=== PATIENT | female | born 1955 | race African-American/Black ===

== ENCOUNTER 2017-01-23 12:43 | Emergency (ER) | payer BC ==
[~2017-01-23] VITALS: Ht 167.6 cm; Wt 62.0 kg
[~2017-01-23 12:43] MED LIST: AMLO10 PO; ASPI-110 PO; BRIL90TA PO; CARV6.25 PO; LIPI40TA PO; METF500T PO
--- NOTE | 2017-01-23 12:52 | PD ---
HPI Chief Complaint: DIZZY Time Seen by Provider: 12:49 Travel History International Travel<30 days: No Contact w/Intl Traveler<30days: No History of Present Illness HPI WORKS AT [employer], WAS IN A HOT ROOM WORKING WHEN SHE FELT DIZZY AND LIGHTHEADED NO CP/HAYES, HAS A H/O DM/HTN AND CARDIAC STENTS.... PATIENT DENIES HAVING ANY FEVER/COUGH/HAYES/CP/PALPITATIONS AT THE TIME OF DIZZINESS, IMPROVED ONCE SHE LAID DOWN PFSH Past Medical History Arthritis: Yes Autoimmune Disease: No Blood Disorders: No Heart Rhythm Problems: Yes Cancer: No Cardiac Catheterization: Yes Cardiovascular Problems: Yes Chemotherapy: No Chest Pain: Yes Congestive Heart Failure: No Cerebrovascular Accident: No Coronary Artery Disease: Yes Diabetes: Yes Diminished Hearing: No Endocrine: No Gastrointestinal Disorders: No Genitourinary: No Headaches: Yes Heparin Induced Thrombocytopen: No Hypertension: Yes Immune Disorder: No Implanted Vascular Access Dvce: No Musculoskeletal: Yes Neurologic: No Psychiatric: No Reproductive: No Respiratory: No Immunizations Current: No Migraines: No Myocardial Infarction: Yes Radiation Therapy: No Seizures: No Sickle Cell Disease: No Thyroid Disease: No Menopausal: Yes Past Surgical History Abdominal Surgery: No AICD: No Arteriovenous Shunt: No Cardiac Surgery: Yes (HEART CATH WITH STENT) Coronary Artery Bypass Graft: No Coronary Stent: Yes (X 1) Ear Surgery: No Endocrine Surgery: No Eye Surgery: No Genitourinary Surgery: No Gynecologic Surgery: No Insulin Pump: No Joint Replacement: No Neurologic Surgery: No Oral Surgery: No Pacemaker: No Thoracic Surgery: No Other Surgery: No Social History Alcohol Use: No Tobacco Use: Yes (1/2 PPD) Substance Use: Yes (MARIJUANA) Allergies-Medications (Allergen,Severity, Reaction): Coded Allergies: Penicillin (Verified Allergy, Severe, HIVES, 01/23/17) Reported Meds & Prescriptions Reported Meds & Active Scripts Active Brilinta (Ticagrelor) 90 Mg Tab 90 Mg PO BID 30 Days Norvasc (Amlodipine Besylate) 10 Mg Tab 10 Mg PO DAILY Metformin (Metformin HCl) 500 Mg Tab 500 Mg PO DAILY With a meal Coreg (Carvedilol) 6.25 Mg Tab 6.25 Mg PO BID Lipitor (Atorvastatin Calcium) 40 Mg Tab 40 Mg PO DAILY Reported Aspirin 81 (Aspirin) 81 Mg Tabdr 81 Mg PO DAILY Review of Systems Except as stated in HPI: all other systems reviewed are Neg Neurologic: Positive: Dizziness Physical Exam Narrative GENERAL: SKIN: Warm and dry. HEAD: Atraumatic. Normocephalic. EYES: Pupils equal and round. No scleral icterus. No injection or drainage. ENT: No nasal bleeding or discharge. Mucous membranes pink and moist. NECK: Trachea midline. No JVD. CARDIOVASCULAR: Regular rate and rhythm. RESPIRATORY: No accessory muscle use. Clear to auscultation. Breath sounds equal bilaterally. GASTROINTESTINAL: Abdomen soft, non-tender, nondistended. Hepatic and splenic margins not palpable. MUSCULOSKELETAL: Extremities without clubbing, cyanosis, or edema. No obvious deformities. NEUROLOGICAL: Awake and alert. No obvious cranial nerve deficits. Motor grossly within normal limits. Five out of 5 muscle strength in the arms and legs. Normal speech. PSYCHIATRIC: Appropriate mood and affect; insight and judgment normal. Data Data Last Documented VS Orders Electrocardiogram (01/23/17 12:56) Complete Blood Count With Diff (01/23/17 12:56) Comprehensive Metabolic Panel (01/23/17 12:56) Troponin I (01/23/17 12:56) Urinalysis - C+S If Indicated (01/23/17 12:56) Ct Brain W/O Iv Contrast(Rout) (01/23/17 12:56) Chest, Single Ap (01/23/17 12:56) Ecg Monitoring (01/23/17 12:56) Iv Access Insert/Monitor (01/23/17 12:56) Oximetry (01/23/17 12:56) Sodium Chloride 0.9% Flush (Ns Flush) (01/23/17 13:00) Sodium Chlor 0.9% 1000 Ml Inj (Ns 1000 M (01/23/17 14:45) Labs MDM Medical Decision Making Medical Screen Exam Complete: Yes Emergency Medical Condition: Yes Interpretation(s) NSR 79, PVC (MONOFOCAL)INVERTED T WAVES ON V5/V6 Differential Diagnosis DEHYDRATION V ANEMIA V HEAT RELATED ILLNESS V IA V ICH Narrative Course AFTER THOROUGH EVALUATION PATIENT IS NOW FEELING BETTER, RESOLVED DIZZINESS AFTER IVF. CT HEAD NEG FOR ICH, NO ELECTROLYTE ABNL NOR ANY ANEMIA NOR ANY EVIDENCE OF A MAJOR IA Diagnosis Primary Impression: HEAT RELATED ILLNESS Additional Impression: DEHYDRATION Patient Instructions: Dehydration (ED), General Instructions, Return to Work Instructions (ED) Disposition: 01 DISCHARGE HOME Condition: Stable Lightburn,Felipe Mcintosh MD Jan 23, 2017 12:51 Concent Red Cell Distribution Width 18.5 % Platelet Count 312 TH/MM3 Mean Platelet Volume 7.9 FL Neutrophils (%) (Auto) 51.2 % Lymphocytes (%) (Auto) 33.4 % Monocytes (%) (Auto) 9.1 % Eosinophils (%) (Auto) 5.5 % Basophils (%) (Auto) 0.8 % Neutrophils # (Auto) 2.9 TH/MM3 Lymphocytes # (Auto) 1.9 TH/MM3 Monocytes # (Auto) 0.5 TH/MM3 Eosinophils # (Auto) 0.3 TH/MM3 Basophils # (Auto) 0.0 TH/MM3 CBC Comment DIFF FINAL Differential Comment Urine Color LIGHT-YELLOW Urine Turbidity CLEAR Urine pH 6.0 Urine Specific [place] 1.011 Urine Protein 100 mg/dL Urine Glucose (UA) NEG mg/dL Urine Ketones NEG mg/dL Urine Occult Blood TRACE Urine Nitrite NEG Urine Bilirubin NEG Urine Urobilinogen LESS THAN 2.0 MG/DL Urine Leukocyte Esterase MOD Urine RBC LESS THAN 1 /hpf Urine WBC 2 /hpf Urine Squamous Epithelial 1 /hpf Cells Urine Transitional Epithelial <1 /hpf Cells Urine Renal Epithelial Cells /hpf Urine Bacteria /hpf Microscopic Urinalysis Comment CATH-CULT NOT IND Sodium Level 141 MEQ/L Potassium Level 3.6 MEQ/L Chloride Level 107 MEQ/L Carbon Dioxide Level 28.1 MEQ/L Anion Gap 6 MEQ/L Blood Urea Nitrogen 22 MG/DL Creatinine 1.34 MG/DL Estimat Glomerular Filtration 49 ML/MIN Rate Random Glucose 110 MG/DL Calcium Level 8.9 MG/DL Total Bilirubin 0.4 MG/DL Aspartate Amino Transf 17 U/L (AST/SGOT) Alanine Aminotransferase 22 U/L (ALT/SGPT) Alkaline Phosphatase 110 U/L Troponin I 0.02 NG/ML Total Protein 7.2 GM/DL Albumin 3.6 GM/DL [facility] Medical Decision Making Medical Screen Exam Complete: Yes Emergency Medical Condition: Yes Interpretation(s) NSR 79, PVC (MONOFOCAL)INVERTED T WAVES ON V5/V6 Differential Diagnosis DEHYDRATION V ANEMIA V HEAT RELATED ILLNESS V IA V ICH Narrative Course AFTER THOROUGH EVALUATION PATIENT IS NOW FEELING BETTER, RESOLVED DIZZINESS AFTER IVF. CT HEAD NEG FOR ICH, NO ELECTROLYTE ABNL NOR ANY ANEMIA NOR ANY EVIDENCE OF A MAJOR IA Diagnosis Primary Impression: HEAT RELATED ILLNESS Additional Impression: DEHYDRATION Patient Instructions: Dehydration (ED), General Instructions, Return to Work Instructions (ED) Disposition: 01 DISCHARGE HOME Condition: Stable Felipe Keane MD Jan 23, 2017 12:51 Felipe Keane MD Jan 23, 2017 12:51
[2017-01-23 12:56] VITALS: BP 162/91; PULSE 84; RESP 20; TEMP 97.5; O2SAT 97
[2017-01-23] MEDS ORDERED: SODIUM CHLORIDE 0.9% FLUSH 10 ML FLUSH IVF PRN (13:00)
[2017-01-23 13:02] VITALS: O2SAT 99
--- NOTE | 2017-01-23 13:24 | RADRPT ---
EXAM DATE/TIME: 01/23/2017 13:08 [facility] COMPARISON: CHEST SINGLE AP, June 04, 2016, 9:42. INDICATIONS : Syncopal episode. MEDICAL HISTORY : Myocardial infarction. Hypertension Diabetes mellitus type II. Coronary artery disease. SURGICAL HISTORY : Cardiac stent. ENCOUNTER: Initial ACUITY: 1 day PAIN SCORE: 0/10 LOCATION: Bilateral chest FINDINGS: A single view of the chest demonstrates the lungs to be symmetrically aerated without evidence of mas s, infiltrate or effusion. The cardiomediastinal contours are unremarkable. Osseous structures are intact. CONCLUSION: No acute disease. No significant change has occurred. Tito De Leon MD on January 23, 2017 at 13:22 Board Certified Radiologist. This report was verified electronically.
[2017-01-23 14:05] LABS: AUTOMATED NEUTROPHIL # 2.9 TH/MM3 (1.8-7.7); BASOPHIL % 0.8 % (0.0-2.0); EOSINOPHIL # 0.3 TH/MM3 (0-0.4); EOSINOPHIL % 5.5 % (0.0-4.0); HEMATOCRIT 37.5 % (35.0-46.0); HEMO FLAGS DIFF FINAL; LYMPH % 33.4 % (9.0-44.0); LYMPHOCYTE # 1.9 TH/MM3 (1.0-4.8); MEAN CELL VOLUME 80.9 FL (80.0-100.0); MEAN CORPUSCULAR HEMOGLOBIN 26.4 PG (27.0-34.0); MEAN CORPUSCULAR HGB CONC 32.6 % (32.0-36.0); MONO % 9.1 % (0.0-8.0); NEUT % 51.2 % (16.0-70.0); PLATELET COUNT 312 TH/MM3 (150-450); RED BLOOD COUNT 4.64 MIL/MM3 (4.00-5.30); RED CELL DISTRIBUTION WIDTH 18.5 % (11.6-17.2); WHITE BLOOD COUNT 5.6 TH/MM3 (4.0-11.0)
[2017-01-23 14:08] LABS: BLOOD, URINE TRACE (NEG); GLUCOSE,URINE NEG (NEG); KETONE, URINE NEG (NEG); NITRITE,URINE NEG (NEG); SQUAMOUS EPITHELIAL CELL URINE 1 /hpf (0-5); TRANSITIONAL EPI CELLS, URINE <1 /hpf; URINE COLOR LIGHT-YELLOW (YELLW/STRAW)
[2017-01-23 14:13] LABS: COMMENT (UR) CATH-CULT NOT IND; CULTURE IF INDICATED CATH CULTURE NOT IND
[2017-01-23 14:20] LABS: ALT (GPT) 22 U/L (10-53); ANION GAP 6 MEQ/L (5-15); AST (GOT) 17 U/L (15-37); BICARBONATE 28.1 MEQ/L (21.0-32.0); BLOOD UREA NITROGEN 22 MG/DL (7-18); CHLORIDE 107 MEQ/L (98-107); GLOMERULAR FILTRATION RATE 49 ML/MIN (>89); POTASSIUM 3.6 MEQ/L (3.5-5.1); SODIUM (NA) 141 MEQ/L (136-145)
[2017-01-23 14:24] LABS: ALKALINE PHOSPHATASE 110 U/L (45-117); TOTAL BILIRUBIN ADULT 0.4 MG/DL (0.2-1.0)
--- NOTE | 2017-01-23 14:38 | RADRPT ---
EXAM DATE/TIME: 01/23/2017 13:50 [facility] COMPARISON: CT BRAIN W/O CONTRAST, January 29, 2015, 15:10. INDICATIONS : Headache, dizziness, nausea. RADIATION DOSE: 40.87 CTDIvol (mGy) MEDICAL HISTORY : Cardiovascular disease. Hypertension. Diabetes SURGICAL HISTORY : None. ENCOUNTER: Initial ACUITY: 1 day PAIN SCALE: 0/10 LOCATION: cranial TECHNIQUE: Multiple contiguous axial images were obtained of the head. Using automated exposure control and adj ustment of the mA and/or kV according to patient size, radiation dose was kept as low as reasonably a chievable to obtain optimal diagnostic quality images. DICOM format image data is available electro nically for review and comparison. FINDINGS: CEREBRUM: The ventricles are normal for age. No evidence of midline shift, mass lesion, hemorrhage or acute in farction. No extra-axial fluid collections are seen. POSTERIOR FOSSA: The cerebellum and brainstem are intact. The 4th ventricle is midline. The cerebellopontine angle i s unremarkable. EXTRACRANIAL: The visualized portion of the orbits is intact. SKULL: The calvaria is intact. No evidence of skull fracture. CONCLUSION: Normal examination. Nelson Smith MD on January 23, 2017 at 14:35 Board Certified Radiologist. This report was verified electronically.
[2017-01-23] MEDS ORDERED: SODIUM CHLOR 0.9% 1000 ML INJ 1,000 ML IV ONE (14:45)
--- NOTE | 2017-01-25 08:41 | EKG ---
Date Performed: 01/23/2017 Time Performed: 13:10:01 PTAGE: 61 years EKG: Sinus rhythm WITH OCCASIONAL VENTRICULAR PREMATURE COMPLEXES INFERIOR MYOCARDIAL INFARCTION ABNORMAL ECG PREVIOUS TRACING : 06/05/2016 05.17 DOCTOR: Mireille Lacy Interpretating Date/Time 01/25/2017 08:39:58
== END 2017-01-23 16:56 | disposition home or self-care (01) ==
LOC: NEPC 12:43
DX: T67.8XXA Other effects of heat and light, initial encounter (principal); E86.0 Dehydration; R94.31 Abnormal electrocardiogram [ECG] [EKG]; E11.9 Type 2 diabetes mellitus without complications; I10 Essential (primary) hypertension; I25.2 Old myocardial infarction; F17.200 Nicotine dependence, unspecified, uncomplicated; X30.XXXA Exposure to excessive natural heat, initial encounter; Y92.59 Other trade areas as the place of occurrence of the external cause; Y99.0 Civilian activity done for income or pay; Z79.84 Long term (current) use of oral hypoglycemic drugs; Z86.79 Personal history of other diseases of the circulatory system; Z87.39 Personal history of other diseases of the musculoskeletal system and connective tissue
CPT/HCPCS: 70450; 71010; 80053; 81001; 84484; 85025; 93005; 96360; 99285; J7030

== ENCOUNTER 2017-04-18 13:18 | Emergency (ER) | payer BC ==
[~2017-04-18] VITALS: Ht 167.6 cm; Wt 62.0 kg
[2017-04-18 13:31] VITALS: BP 137/100; PULSE 79; RESP 19; O2SAT 100
[2017-04-18 13:38] VITALS: BP 137/100; PULSE 79; RESP 19; TEMP 98.1; O2SAT 100
[2017-04-18] MEDS ORDERED: ONDANSETRON HCL 4 MG/2 ML VIAL IV PUSH ONE (13:45)
[2017-04-18] MEDS ORDERED: NITROGLYCERIN 2% OINT 1 GM PACKET TOP ONE (13:45)
[2017-04-18] MEDS ORDERED: MORPHINE SULFATE 4 MG/ML INJ IV PUSH ONE (13:45)
[2017-04-18] MEDS ORDERED: SODIUM CHLORIDE 0.9% FLUSH 10 ML FLUSH IVF PRN (13:45)
[2017-04-18] MEDS ORDERED: ASPIRIN 81 MG CHEW TAB PO ONE (13:45)
[2017-04-18] MEDS ORDERED: PLAV75TA29 PO (13:50)
--- NOTE | 2017-04-18 13:56 | PD ---
HPI . Chest pain Chief Complaint: Chest Pain Time Seen by Provider: 13:34 Travel History International Travel<30 days: No Contact w/Intl Traveler<30days: No Traveled to known affect area: No History of Present Illness HPI This patient presents with right-sided chest pain which started 3 days ago. She reports a constant pain that is pressure-like and which she currently rates 7/10. She states that it has been as severe as 10/10. She denies any associated diaphoresis or shortness of breath. She reports one episode of emesis this morning. No modifying factors. PFSH Past Medical History Hx Anticoagulant Therapy: Yes Arthritis: Yes Autoimmune Disease: No Blood Disorders: No Heart Rhythm Problems: Yes Cancer: No Cardiac Catheterization: Yes Cardiovascular Problems: Yes Chemotherapy: No Chest Pain: Yes Congestive Heart Failure: No Cerebrovascular Accident: No Coronary Artery Disease: Yes Diabetes: Yes Patient Takes Glucophage: Yes Diminished Hearing: No Endocrine: No Gastrointestinal Disorders: No Genitourinary: No Headaches: Yes (OCCASIONAL) Heparin Induced Thrombocytopen: No Hypertension: Yes Immune Disorder: No Implanted Vascular Access Dvce: No Musculoskeletal: Yes Neurologic: No Psychiatric: No Reproductive: No Respiratory: No Immunizations Current: No Migraines: No Myocardial Infarction: Yes Radiation Therapy: No Seizures: No Sickle Cell Disease: No Thyroid Disease: No ?: Not Menopausal: Yes Past Surgical History Abdominal Surgery: No AICD: No Arteriovenous Shunt: No Cardiac Surgery: Yes (HEART CATH WITH STENT) Coronary Artery Bypass Graft: No Coronary Stent: Yes (X 3) Ear Surgery: No Endocrine Surgery: No Eye Surgery: No Genitourinary Surgery: No Gynecologic Surgery: No Insulin Pump: No Joint Replacement: No Neurologic Surgery: No Oral Surgery: No Pacemaker: No Thoracic Surgery: No Other Surgery: No Family History Family Myocardial Infarction: Yes Social History Alcohol Use: No Tobacco Use: Yes (1/2 PPD) Substance Use: Yes (MARIJUANA) Allergies-Medications (Allergen,Severity, Reaction): Coded Allergies: penicillin G (Verified Allergy, Severe, HIVES, 04/18/17) Reported Meds & Prescriptions Reported Meds & Active Scripts Active Norvasc (Amlodipine Besylate) 10 Mg Tab 10 Mg PO DAILY Metformin (Metformin HCl) 500 Mg Tab 500 Mg PO DAILY With a meal Coreg (Carvedilol) 6.25 Mg Tab 6.25 Mg PO BID Lipitor (Atorvastatin Calcium) 40 Mg Tab 40 Mg PO DAILY Reported Plavix (Clopidogrel Bisulfate) 75 Mg Tab 75 Mg PO DAILY Aspirin 81 (Aspirin) 81 Mg Tabdr 81 Mg PO DAILY Review of Systems Except as stated in HPI: all other systems reviewed are Neg HENT: No: Headaches Cardiovascular: Positive: Chest Pain or Discomfort Respiratory: No: Shortness of Breath Gastrointestinal: Positive: Nausea, Vomiting Physical Exam Narrative GENERAL: Awake and alert and in no acute distress. SKIN: warm/dry. No rash. HEAD: Normocephalic. Atraumatic. EYES: Pupils equal and round. No scleral icterus. No injection or drainage. ENT: No nasal bleeding or discharge. Mucous membranes pink and moist. NECK: Trachea midline. Full range of motion without pain.. CARDIOVASCULAR: Regular rate and rhythm. Heart sounds normal. RESPIRATORY: No accessory muscle use. Clear to auscultation. Breath sounds equal bilaterally. Reproducible right sided chest wall tenderness. GASTROINTESTINAL: Abdomen soft. Nontender. Bowel sounds present. Nondistended. MUSCULOSKELETAL: No obvious deformities. NEUROLOGICAL: Awake and alert. No obvious cranial nerve deficits. Motor grossly within normal limits. Normal speech. PSYCHIATRIC: Appropriate mood and affect; insight and judgment normal. Data Data Last Documented VS Vital Signs Date Time Temp Pulse Resp B/P (MAP) Pulse Ox O2 Delivery O2 Flow Rate FiO2 04/18/17 13:38 98.1 79 19 137/100 (112) 100 Room Air Orders Orders Electrocardiogram (04/18/17 13:34) Basic Metabolic Panel (Bmp) (04/18/17 13:34) Ckmb (Isoenzyme) Profile (04/18/17 13:34) Complete Blood Count With Diff (04/18/17 13:34) D-Dimer (04/18/17 13:34) Magnesium (Mg) (04/18/17 13:34) Prothrombin Time / Inr (Pt) (04/18/17 13:34) Act Partial Throm Time (Ptt) (04/18/17 13:34) Troponin I (04/18/17 13:34) Chest, Single Ap (04/18/17 13:34) Ecg Monitoring (04/18/17 13:34) Iv Access Insert/Monitor (04/18/17 13:34) Oximetry (04/18/17 13:34) Aspirin Chew (Aspirin Chew) (04/18/17 13:45) Morphine Inj (Morphine Inj) (04/18/17 13:45) Nitroglycerin 2% Oint (Nitroglycerin 2% (04/18/17 13:45) Sodium Chloride 0.9% Flush (Ns Flush) (04/18/17 13:45) Ondansetron Inj (Zofran Inj) (04/18/17 13:45) CKMB (04/18/17 13:45) CKMB% (04/18/17 13:45) Labs Laboratory Tests Test 04/18/17 13:45 White Blood Count 5.2 TH/MM3 Red Blood Count 5.27 MIL/MM3 Hemoglobin 14.1 GM/DL Hematocrit 42.9 % Mean Corpuscular Volume 81.3 FL Mean Corpuscular Hemoglobin 26.7 PG Mean Corpuscular Hemoglobin Concent 32.9 % Red Cell Distribution Width 18.1 % Platelet Count 302 TH/MM3 Mean Platelet Volume 7.3 FL Neutrophils (%) (Auto) 45.6 % Lymphocytes (%) (Auto) 38.4 % Monocytes (%) (Auto) 8.2 % Eosinophils (%) (Auto) 6.3 % Basophils (%) (Auto) 1.5 % Neutrophils # (Auto) 2.4 TH/MM3 Lymphocytes # (Auto) 2.0 TH/MM3 Monocytes # (Auto) 0.4 TH/MM3 Eosinophils # (Auto) 0.3 TH/MM3 Basophils # (Auto) 0.1 TH/MM3 CBC Comment DIFF FINAL Differential Comment Prothrombin Time 10.4 SEC Prothromb Time International Ratio 0.9 RATIO Activated Partial Thromboplast Time 30.3 SEC D-Dimer Quantitative (PE/DVT) 0.51 MG/L FEU Blood Urea Nitrogen 16 MG/DL Creatinine 1.12 MG/DL Random Glucose 107 MG/DL Calcium Level 9.4 MG/DL Magnesium Level 1.9 MG/DL Sodium Level 141 MEQ/L Potassium Level 3.9 MEQ/L Chloride Level 108 MEQ/L Carbon Dioxide Level 26.4 MEQ/L Anion Gap 7 MEQ/L Estimat Glomerular Filtration Rate 60 ML/MIN Total Creatine Kinase 247 U/L Troponin I LESS THAN 0.02 NG/ML MDM Medical Decision Making Medical Screen Exam Complete: Yes Emergency Medical Condition: Yes Medical Record Reviewed: Yes (this patient has a medical history of hypertension, diabetes, previous [place] status post stent.) Interpretation(s) EKG shows a sinus rhythm with no exacerbation depression. She does have LVH. Her EKG is unchanged from previous. Differential Diagnosis Differential diagnosis of chest pain includes but is not limited to musculoskeletal pain, pulmonary embolism, acute coronary syndrome, pneumonia, pleurisy Narrative Course This patient presents with a three-day history of chest pain. The chest pain is reproducible. If her workup is negative, this is probably not cardiac chest pain and she can probably be discharged home. Last Impressions Chest X-Ray 04/18/17 1334 Signed Impressions: Service Date/Time: Tuesday, April 18, 2017 13:39 - CONCLUSION: No acute disease. at 14:04 Ben Chavez MD FACR CBC & BMP Diagram 04/18/17 13:45 Calcium Level 9.4, Magnesium Level 1.9 D-dimer is 0.51 CK 247, troponin < 0.02 The patient's chest pain has improved. The mildly elevated d-dimer is not felt to be clinically significant. She is having no shortness of breath and is not tachycardic. She will be discharged to home. Diagnosis Primary Impression: Chest wall pain Patient Instructions: Chest Wall Pain (ED), General Instructions, Narcotic given in the ED Med/Other Pt SpecificInfo: Prescription(s) given, No Change to Meds Scripts Cyclobenzaprine (Flexeril) 10 Mg Tab 10 MG PO TID for Muscle Spasm, #30 TAB 0 Refills Prov: Nery Corona MD 04/18/17 Tramadol (Ultram) 50 Mg Tab 50 MG PO Q4H Y for PAIN, #12 TAB 0 Refills Prov: Nery Corona MD 04/18/17 Disposition: 01 DISCHARGE HOME Condition: Stable Nery Corona MD Apr 18, 2017 13:55
[2017-04-18 14:02] LABS: AUTOMATED NEUTROPHIL # 2.4 TH/MM3 (1.8-7.7); BASOPHIL # 0.1 TH/MM3 (0-0.2); BASOPHIL % 1.5 % (0.0-2.0); EOSINOPHIL # 0.3 TH/MM3 (0-0.4); EOSINOPHIL % 6.3 % (0.0-4.0); HEMATOCRIT 42.9 % (35.0-46.0); HEMO FLAGS DIFF FINAL; LYMPH % 38.4 % (9.0-44.0); MEAN CELL VOLUME 81.3 FL (80.0-100.0); MEAN CORPUSCULAR HEMOGLOBIN 26.7 PG (27.0-34.0); MEAN CORPUSCULAR HGB CONC 32.9 % (32.0-36.0); MONO % 8.2 % (0.0-8.0); NEUT % 45.6 % (16.0-70.0); PLATELET COUNT 302 TH/MM3 (150-450); RED BLOOD COUNT 5.27 MIL/MM3 (4.00-5.30); RED CELL DISTRIBUTION WIDTH 18.1 % (11.6-17.2); WHITE BLOOD COUNT 5.2 TH/MM3 (4.0-11.0)
--- NOTE | 2017-04-18 14:06 | RADRPT ---
EXAM DATE/TIME: 04/18/2017 13:39 [facility] COMPARISON: CHEST SINGLE AP, January 23, 2017, 13:08. INDICATIONS : Chest pain for 4 days, pain is in the right upper chest MEDICAL HISTORY : Myocardial infarction. Diabetes mellitus type II. Hypertension. coronary artery disease SURGICAL HISTORY : coronary artery stent x 3 ENCOUNTER: Initial ACUITY: 4 - 6 days PAIN SCORE: 8/10 LOCATION: Right chest FINDINGS: A single view of the chest demonstrates the lungs to be symmetrically aerated without evidence of mas s, infiltrate or effusion. The cardiomediastinal contours are unremarkable. Osseous structures are intact. CONCLUSION: No acute disease. at 14:04 Ben Chavez MD FACR on April 18, 2017 Board Certified Radiologist. This report was verified electronically.
[2017-04-18 14:17] LABS: APTT (PATIENT) 30.3 SEC (24.3-30.1); INTERNATIONAL NORMALIZED RATIO 0.9 RATIO; PROTHROMBIN TIME - PATIENT 10.4 SEC (9.8-11.6)
[2017-04-18 14:21] LABS: ANION GAP 7 MEQ/L (5-15); BICARBONATE 26.4 MEQ/L (21.0-32.0); BLOOD UREA NITROGEN 16 MG/DL (7-18); CHLORIDE 108 MEQ/L (98-107); GLOMERULAR FILTRATION RATE 60 ML/MIN (>89); MAGNESIUM 1.9 MG/DL (1.5-2.5); POTASSIUM 3.9 MEQ/L (3.5-5.1); SODIUM (NA) 141 MEQ/L (136-145)
[2017-04-18 14:25] LABS: CREATINE KINASE 247 U/L (26-192)
[2017-04-18] MEDS ORDERED: ULTR50TA5 PO (14:34)
[2017-04-18] MEDS ORDERED: CYCL1TAB29 PO (14:34)
[2017-04-18 15:23] VITALS: BP 143/88
--- NOTE | 2017-04-19 21:46 | EKG ---
Date Performed: 04/18/2017 Time Performed: 13:32:21 PTAGE: 61 years EKG: Sinus rhythm MINIMAL VOLTAGE CRITERIA FOR LVH, CONSIDER NORMAL VARIANT INFERIOR MYOCARDIAL INFARCTION-AGE INDETER MINATE ABNORMAL ECG PREVIOUS TRACING : 01/23/2017 13.10 DOCTOR: Cali Mathew Interpretating Date/Time 04/19/2017 21:44:48
== END 2017-04-18 15:30 | disposition home or self-care (01) ==
LOC: NEPC 13:18
DX: R07.89 Other chest pain (principal); F17.200 Nicotine dependence, unspecified, uncomplicated; I10 Essential (primary) hypertension; I25.10 Atherosclerotic heart disease of native coronary artery without angina pectoris; E11.9 Type 2 diabetes mellitus without complications; Z79.84 Long term (current) use of oral hypoglycemic drugs; Z79.899 Other long term (current) drug therapy
CPT/HCPCS: 71010; 80048; 82550; 82552; 83735; 84484; 85025; 85379; 85610; 85730; 93005; 96374; 96375; 99285; J2270; J2405

== ENCOUNTER 2017-09-22 07:31 | Emergency (ER) | payer BC ==
[~2017-09-22] VITALS: Ht 167.6 cm; Wt 65.0 kg
[~2017-09-22 07:31] MED LIST changes: -ASPI-110 PO; +ASPI1TAB57 PO; -BRIL90TA PO; +CYCL10TA PO; +PLAV75TA29 PO; +TRAM50 PO
[2017-09-22 07:52] VITALS: BP 141/94; PULSE 104; RESP 16; TEMP 99; O2SAT 95
[2017-09-22 08:08] LABS: AUTOMATED NEUTROPHIL # 6.4 TH/MM3 (1.8-7.7); BASOPHIL % 0.5 % (0.0-2.0); EOSINOPHIL # 0.2 TH/MM3 (0-0.4); EOSINOPHIL % 2.9 % (0.0-4.0); HEMATOCRIT 41.3 % (35.0-46.0); HEMOGLOBIN 13.7 GM/DL (11.6-15.3); LYMPH % 8.9 % (9.0-44.0); LYMPHOCYTE # 0.7 TH/MM3 (1.0-4.8); MEAN CELL VOLUME 80.2 FL (80.0-100.0); MEAN CORPUSCULAR HEMOGLOBIN 26.5 PG (27.0-34.0); MEAN CORPUSCULAR HGB CONC 33.1 % (32.0-36.0); MONO % 7.1 % (0.0-8.0); MONOCYTE # 0.6 TH/MM3 (0-0.9); NEUT % 80.6 % (16.0-70.0); PLATELET COUNT 307 TH/MM3 (150-450); RED BLOOD COUNT 5.15 MIL/MM3 (4.00-5.30); RED CELL DISTRIBUTION WIDTH 19.3 % (11.6-17.2)
--- NOTE | 2017-09-22 08:12 | RADRPT ---
EXAM DATE/TIME: 09/22/2017 07:51 [facility] COMPARISON: CHEST SINGLE AP, April 18, 2017, 13:39. INDICATIONS : Cough and flu like symptoms since yesterday. MEDICAL HISTORY : Hypertension. Myocardial infarction. Coronary artery disease. Diabetes. SURGICAL HISTORY : Cardiac cath. Coronary stent. ENCOUNTER: Initial ACUITY: 1 day PAIN SCORE: 5/10 LOCATION: Bilateral chest FINDINGS: The heart is mildly enlarged. The lungs demonstrate chronic interstitial changes but are otherwise cl ear. The visualized bony structures are grossly intact. CONCLUSION: 1. No focal or segmental pneumonia identified. 2. Mild cardiomegaly. Sourav Chavez MD on September 22, 2017 at 8:10 Board Certified Radiologist. This report was verified electronically.
[2017-09-22 08:14] LABS: PROTHROMBIN TIME - PATIENT 10.2 SEC (9.8-11.6)
[2017-09-22 08:23] LABS: CALCIUM 9.2 MG/DL (8.5-10.1); CREATININE 1.33 MG/DL (0.50-1.00)
--- NOTE | 2017-09-22 08:23 | PD ---
HPI Chief Complaint: Cardiac Complaint Time Seen by Provider: 08:11 Travel History International Travel<30 days: No Contact w/Intl Traveler<30days: No Traveled to known affect area: No History of Present Illness HPI The patient was seen and examined in the presence of the nurse. This patient complains of chest pain. She has had this patient on and on for many months. Location is right upper chest. Worse when she presses it or moves. Feels like someone is pressing into her chest there. Denies injury. No productive cough. She quit smoking 5 months ago. No alleviating factors. Severity is moderate. PFSH Past Medical History Hx Anticoagulant Therapy: Yes Arthritis: Yes Autoimmune Disease: No Blood Disorders: No Heart Rhythm Problems: Yes Cancer: No Cardiac Catheterization: Yes Cardiovascular Problems: Yes High Cholesterol: Yes Chemotherapy: No Chest Pain: Yes Congestive Heart Failure: No Cerebrovascular Accident: No Coronary Artery Disease: Yes Diabetes: Yes Patient Takes Glucophage: Yes Diminished Hearing: No Endocrine: No Gastrointestinal Disorders: No Genitourinary: No Headaches: Yes (OCCASIONAL) Heparin Induced Thrombocytopen: No Hypertension: Yes Immune Disorder: No Implanted Vascular Access Dvce: No Musculoskeletal: Yes Neurologic: No Psychiatric: No Reproductive: No Respiratory: No Immunizations Current: No Migraines: No Myocardial Infarction: Yes Radiation Therapy: No Seizures: No Sickle Cell Disease: No Thyroid Disease: No ?: Not Menopausal: Yes Past Surgical History Abdominal Surgery: No AICD: No Arteriovenous Shunt: No Cardiac Surgery: Yes Coronary Artery Bypass Graft: No Coronary Stent: Yes (X 3) Ear Surgery: No Endocrine Surgery: No Eye Surgery: No Genitourinary Surgery: No Gynecologic Surgery: No Insulin Pump: No Joint Replacement: No Neurologic Surgery: No Oral Surgery: No Pacemaker: No Thoracic Surgery: No Other Surgery: No Family History Family Myocardial Infarction: Yes Social History Alcohol Use: No Tobacco Use: No (denies current use, smells of ) Substance Use: Yes (MARIJUANA) Allergies-Medications (Allergen,Severity, Reaction): Coded Allergies: penicillin G (Verified Allergy, Severe, HIVES, 04/18/17) Reported Meds & Prescriptions Reported Meds & Active Scripts Active Ultram (Tramadol HCl) 50 Mg Tab 50 Mg PO Q4H PRN Norvasc (Amlodipine Besylate) 10 Mg Tab 10 Mg PO DAILY Metformin (Metformin HCl) 500 Mg Tab 500 Mg PO DAILY With a meal Coreg (Carvedilol) 6.25 Mg Tab 6.25 Mg PO BID Lipitor (Atorvastatin Calcium) 40 Mg Tab 40 Mg PO DAILY Reported Plavix (Clopidogrel Bisulfate) 75 Mg Tab 75 Mg PO DAILY Aspirin 81 (Aspirin) 81 Mg Tabdr 81 Mg PO DAILY Review of Systems General / Constitutional: No: Fever Eyes: No: Visual changes HENT: No: Headaches Cardiovascular: Positive: Chest Pain or Discomfort Respiratory: No: Shortness of Breath Gastrointestinal: No: Abdominal Pain Genitourinary: No: Dysuria Musculoskeletal: No: Pain Skin: No Rash Neurologic: No: Weakness Psychiatric: No: Depression Endocrine: No: Polydipsia Hematologic/Lymphatic: No: Easy Bruising Physical Exam Narrative GENERAL: Well-nourished, well-developed patient in no apparent distress. SKIN: Focused skin assessment reveals no rash and nodules. Skin is Warm and dry. HEAD: Atraumatic. Normocephalic. EYES: Pupils equal and round. No scleral icterus. No injection or drainage. ENT: No nasal bleeding or discharge. Mucous membranes pink and moist. NECK: Trachea midline. No JVD. CARDIOVASCULAR: Regular rate and rhythm. No murmur appreciated. RESPIRATORY: No accessory muscle use. Clear to auscultation. Breath sounds equal bilaterally. GASTROINTESTINAL: Abdomen soft, non-tender, nondistended. Hepatic and splenic margins not palpable. MUSCULOSKELETAL: No obvious deformities. No clubbing. No cyanosis. No edema. Has prominent and very easily and readily reproducible right upper chest wall pain. NEUROLOGICAL: Awake and alert. No obvious cranial nerve deficits. Motor grossly within normal limits. Normal speech. PSYCHIATRIC: Appropriate mood and affect; insight and judgment normal. Data Data Last Documented VS Vital Signs Date Time Temp Pulse Resp B/P (MAP) Pulse Ox O2 Delivery O2 Flow Rate FiO2 09/22/17 10:42 101 14 169/87 (114) 96 09/22/17 07:55 Room Air 09/22/17 07:52 99.0 Orders Orders Electrocardiogram (09/22/17 07:48) Complete Blood Count With Diff (09/22/17 07:48) Basic Metabolic Panel (Bmp) (09/22/17 07:48) Ckmb (Isoenzyme) Profile (09/22/17 07:48) Troponin I (09/22/17 07:48) Chest, Single Ap (09/22/17 07:48) Iv Access Insert/Monitor (09/22/17 07:48) Ecg Monitoring (09/22/17 07:48) Oxygen Administration (09/22/17 07:48) Oximetry (09/22/17 07:48) Act Partial Throm Time (Ptt) (09/22/17 07:48) Prothrombin Time / Inr (Pt) (09/22/17 07:48) CKMB (09/22/17 07:55) CKMB% (09/22/17 07:55) Labs Laboratory Tests Test 09/22/17 07:55 White Blood Count 8.0 TH/MM3 Red Blood Count 5.15 MIL/MM3 Hemoglobin 13.7 GM/DL Hematocrit 41.3 % Mean Corpuscular Volume 80.2 FL Mean Corpuscular Hemoglobin 26.5 PG Mean Corpuscular Hemoglobin Concent 33.1 % Red Cell Distribution Width 19.3 % Platelet Count 307 TH/MM3 Mean Platelet Volume 7.0 FL Neutrophils (%) (Auto) 80.6 % Lymphocytes (%) (Auto) 8.9 % Monocytes (%) (Auto) 7.1 % Eosinophils (%) (Auto) 2.9 % Basophils (%) (Auto) 0.5 % Neutrophils # (Auto) 6.4 TH/MM3 Lymphocytes # (Auto) 0.7 TH/MM3 Monocytes # (Auto) 0.6 TH/MM3 Eosinophils # (Auto) 0.2 TH/MM3 Basophils # (Auto) 0.0 TH/MM3 CBC Comment DIFF FINAL Differential Comment Prothrombin Time 10.2 SEC Prothromb Time International Ratio 1.0 RATIO Activated Partial Thromboplast Time 28.4 SEC Blood Urea Nitrogen 18 MG/DL Creatinine 1.33 MG/DL Random Glucose 124 MG/DL Calcium Level 9.2 MG/DL Sodium Level 137 MEQ/L Potassium Level 3.9 MEQ/L Chloride Level 103 MEQ/L Carbon Dioxide Level 28.0 MEQ/L Anion Gap 6 MEQ/L Estimat Glomerular Filtration Rate 49 ML/MIN Total Creatine Kinase 464 U/L Creatine Kinase MB 3.3 NG/ML Creatine Kinase MB % 0.7 % Troponin I 0.02 NG/ML [facility] Medical Decision Making Medical Screen Exam Complete: Yes Emergency Medical Condition: Yes Medical Record Reviewed: Yes Differential Diagnosis Differential diagnosis includes [place], angina, pericarditis, pleurisy, GERD, anxiety. Narrative Course I have reviewed the patient's electronic medical record. Patient's been here multiple times for chest pain. She had stenting done in 2016 of her LAD. She is also been here for this right upper chest wall pain IV placed I reviewed the EKG shows sinus rhythm and no acute ST elevation I reviewed the chest x-ray which is normal Extended cardiac monitoring shows sinus rhythm without ectopy Cardiac enzymes are normal General blood work is normal This chest pain is clear-cut and obvious chest wall pain. While she does have known CAD, this presentation is definitely musculoskeletal in origin. She will not require inpatient evaluation for this pain. His chronic and she should discuss it with her physician. She is out of her medications and I am going to try to help her with some refills. Diagnosis Primary Impression: Musculoskeletal chest pain Additional Impression: CAD (coronary artery disease) Qualified Codes: I25.10 - Atherosclerotic heart disease of [place] coronary artery without angina pectoris; I25.84 - Coronary atherosclerosis due to calcified coronary lesion Additional Instructions: The patient was advised to follow up with their physician and return if they worsen. Med/Other Pt SpecificInfo: Other Disposition: 01 DISCHARGE HOME Condition: Stable Gael Champion MD Sep 22, 2017 08:23
[2017-09-22 08:27] LABS: TROPONIN I 0.02 NG/ML (0.02-0.05)
[2017-09-22 10:42] VITALS: BP 169/87; PULSE 101; RESP 14; O2SAT 96
[2017-09-22] MEDS ORDERED: CARV6.25 PO (12:50)
[2017-09-22] MEDS ORDERED: PLAV75TA29 PO (12:50)
[2017-09-22] MEDS ORDERED: LIPI40TA PO (12:50)
[2017-09-22] MEDS ORDERED: AMLO10 PO (12:50)
[2017-09-22] MEDS ORDERED: METF500T PO (12:50)
[2017-09-22 14:20] VITALS: BP 137/72; PULSE 95; RESP 16; O2SAT 97
--- NOTE | 2017-09-22 19:53 | EKG ---
Date Performed: 09/22/2017 Time Performed: 07:51:30 PTAGE: 61 years EKG: Sinus rhythm MODERATE VOLTAGE CRITERIA FOR LVH, CONSIDER NORMAL VARIANT POSSIBLE INFERIOR MYOCARDIAL INFARCTION A BNORMAL ECG PREVIOUS TRACING : 04/18/2017 13.32 Since the prior tracing, there has been no significant ng DOCTOR: Veronica Rubalcava Interpretating Date/Time 09/22/2017 19:51:14
== END 2017-09-22 14:22 | disposition home or self-care (01) ==
LOC: NEPC 07:31
DX: R07.89 Other chest pain (principal); I25.10 Atherosclerotic heart disease of native coronary artery without angina pectoris; I25.84 Coronary atherosclerosis due to calcified coronary lesion; E11.9 Type 2 diabetes mellitus without complications; E78.00 Pure hypercholesterolemia, unspecified; I10 Essential (primary) hypertension; I25.2 Old myocardial infarction; F12.90 Cannabis use, unspecified, uncomplicated; Z79.02 Long term (current) use of antithrombotics/antiplatelets; Z79.84 Long term (current) use of oral hypoglycemic drugs; Z87.891 Personal history of nicotine dependence; Z95.5 Presence of coronary angioplasty implant and graft
CPT/HCPCS: 71045; 80048; 82550; 82552; 84484; 85025; 85610; 85730; 93005; 99285

== ENCOUNTER 2018-03-09 22:03 | Observation (INO) ==
--- NOTE | 2018-03-09 22:36 | ED ---
HPI General Chief Complaint: Chest Pain Stated Complaint: Chest Pains Time Seen by Provider: 03/09/18 22:25 Source: patient Mode of arrival: ambulatory Limitations: no limitations History of Present Illness HPI narrative: 62y female with a history of CAD status post stents x3, DMII, HTN presents to the ED via [facility] for chest pain that started. [facility] states they gave BASAx4 and NTGx1 with a decreases in her pain from 7/10 to 4/10. She says about 830p, she was sitting in front of the TV watching a game when her pain started. Patient states that is located on the right midsternal region without radiation. No palliative or provocative factors. Denies associated shortness of breath or chest pain. States the last episode was earlier this year. She says she follows Dr. Lee, cardiology and her last appointment was 3-4 months ago. 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 Complete Quality Measures for STEMI Alert Patients Related Data Home Medications Medication Instructions Recorded Confirmed amlodipine 10 mg PO DAILY 03/09/18 03/09/18 aspirin [Aspir-81] 81 mg PO DAILY 03/09/18 03/09/18 carvedilol 6.25 mg PO BID 03/09/18 03/09/18 metformin 500 mg PO DAILY 03/09/18 03/09/18 Allergies Allergy/AdvReac Type Severity Reaction Status Date / Time penicillin G Allergy Severe HIVES Verified 04/18/17 13:35 Review of Systems ROS: all other systems reviewed are negative [facility] Medical History Medical History Diabetes (Acute) HTN (hypertension) (Acute) Heart attack (Acute) Surgical History Surgical History H/O heart artery stent (Acute) Social History Social History Substance History: No History of Abuse Smoking Status: Heavy tobacco smoker Tobacco Type: Cigarettes How Often Do You Have a Drink Containing Alcohol: 2 to 4 times a month Recent Travel in [facility] within the Last 8 Weeks: No Recent Out of Country Travel within the Last 8 Weeks: No Immunization History Tetanus Immunization: >5 Years Hx Influenza Vaccine This Season: No Exam Narrative Exam Narrative: GENERAL: Well-developed, well-nourished in no apparent distress SKIN: Focused skin assessment warm/dry. Right posterior upper shoulder with 4 cm round fluctuant mobile mass with mild tenderness to palpation consistent with lipoma HEAD: Atraumatic. Normocephalic. EYES: Pupils equal and round. No scleral icterus. No injection or drainage. ENT: No nasal bleeding or discharge. Mucous membranes pink and moist. NECK: Trachea midline. No JVD. CARDIOVASCULAR: Regular rate and rhythm. No murmur appreciated. RESPIRATORY: No accessory muscle use. Clear to auscultation. Breath sounds equal bilaterally. GASTROINTESTINAL: Abdomen soft, non-tender, nondistended. Hepatic and splenic margins not palpable. MUSCULOSKELETAL: No obvious deformities. No clubbing. No cyanosis. No edema. Mild tenderness to palpation to the right anterior chest wall NEUROLOGICAL: Awake and alert. No obvious cranial nerve deficits. Motor grossly within normal limits. Normal speech. PSYCHIATRIC: Appropriate mood and affect; insight and judgment normal. Course Initial Documented Vital Signs Temperature 98.6 F 03/09/18 22:13 Pulse Rate 85 03/09/18 22:13 Respiratory Rate 18 03/09/18 22:13 Blood Pressure 152/98 H 03/09/18 22:13 Pulse Oximetry 100 03/09/18 22:13 Last Documented Vital Signs Temperature 98.6 F 03/09/18 22:13 Pulse Rate 85 03/09/18 22:13 Respiratory Rate 18 03/09/18 22:13 Blood Pressure 152/98 H 03/09/18 22:13 Pulse Oximetry 99 03/09/18 22:45 Medical Decision Making [facility] Narrative Medical decision making narrative: 60-year-old female presents emergency department [facility] with chest pain that started at 8:30 PM. Patient has a significant history of coronary artery disease and has a history of NM 3 status post stent placement. She was given nitroglycerin with some improvement in her pain. Her vital signs are stable. Nitroglycerin x 1 administered in the emergency department with improvement in her pain. Differential Diagnosis Differential Diagnosis: ACS, angina, NSTEMI, anxiety Lab Data Result diagrams: 03/09/18 22:40 03/09/18 22:40 Lab Results 03/09/18 03/09/18 03/09/18 Range/Units 22:40 22:40 22:40 WBC 5.7 (4.0-11.0) th/mm3 RBC 4.65 (4.00-5.30) mil/mm3 Hgb 12.5 (11.6-15.3) gm/dL Hct 38.0 (35.0-46.0) % MCV 81.7 (80.0-100.0) fL MCH 26.9 L (27.0-34.0) pg MCHC 33.0 (32.0-36.0) % RDW 17.6 H (11.6-17.2) % Plt Count 274 (150-450) th/mm3 MPV 7.2 (7.0-11.0) fL Neut % (Auto) 44.3 (16.0-70.0) % Lymph % (Auto) 42.4 (9.0-44.0) % [place] % (Auto) 7.7 (0.0-8.0) % Eos % (Auto) 5.0 H (0.0-4.0) % Baso % (Auto) 0.6 (0.0-2.0) % Neut # (Auto) 2.5 (1.8-7.7) th/mm3 Lymph # (Auto) 2.4 (1.0-4.8) th/mm3 [place] # (Auto) 0.4 (0.0-0.9) th/mm3 Eos # (Auto) 0.3 (0.0-0.4) th/mm3 Baso # (Auto) 0.0 (0.0-0.2) th/mm3 WBC Differential . Differential Comment Auto diff final PT 10.5 (9.8-11.6) sec INR 1.0 Ratio APTT 28.9 (24.3-30.1) sec Sodium 141 (136-145) meq/L Potassium 3.3 L (3.5-5.1) meq/L Chloride 107 (98-107) meq/L Carbon Dioxide 27.9 (21.0-32.0) meq/L Anion Gap 6 (5-15) meq/L BUN 19 H (7-18) mg/dL Creatinine 1.25 H (0.50-1.00) mg/dL Estimated GFR 53 L (>89) mL/min Random Glucose 105 (74-106) mg/dL Calcium 8.9 (8.5-10.1) mg/dL Total Bilirubin 0.3 (0.2-1.0) mg/dL AST 20 (15-37) U/L ALT 20 (10-53) U/L Alkaline Phosphatase 90 (45-117) U/L Total Creatine Kinase 248 H (26-192) U/L CK-MB (CK-2) 7.3 H (0.5-3.6) ng/mL CK-MB (CK-2) % 2.9 (0.0-4.0) % Troponin I 0.04 (0.02-0.05) ng/mL Total Protein 7.0 (6.4-8.2) g/dL Albumin 3.5 (3.4-5.0) g/dL Imaging Data Radiologist's impression: Chest X-Ray 03/09/18 22:26 CONCLUSION: Cardiomegaly and hyperinflated lungs. No evidence of acute cardiopulmonary process. ECG Data EKG Prior to Arrival: No Discharge Plan Discharge Disposition Patient Disposition: 30 Still Patient Discharge Condition Condition: Stable Discharge Details Diagnosis: Chest pain Physicians Team ED Provider: Bhumika Neal ED Midlevel Provider: Lyla Fuentes Primary Care Provider: Primary Care Alexandrea Castillo Rxs /Orders / Referrals /Forms Prescriptions: No Action metformin 500 mg Tablet 500 mg PO DAILY RF: 0 carvedilol 6.25 mg Tablet 6.25 mg PO BID RF: 0 aspirin [Aspir-81] 81 mg Tablet,Delayed Release (Dr/Ec) 81 mg PO DAILY RF: 0 amlodipine 10 mg Tablet 10 mg PO DAILY RF: 0 Discharge Instructions Patient Printed Instructions: Chest Pain (ED) Status ED Status: With Doctor
--- NOTE | 2018-03-09 22:44 | XR ---
EXAM DATE: 03/09/2018 10:41 PM EDT AGE/SEX: 62 years / Female INDICATIONS: Chest pain CLINICAL DATA: This is the patient's initial encounter. Patient reports that signs and symptoms have been present for 1 day and indicates a pain score of 5/10. MEDICAL/SURGICAL HISTORY: . Hypertension. Myocardial infarction. Coronary artery disease. [place]. . Cardiac cath. Coronary stent COMPARISON: [facility] [place], CHEST SINGLE AP, 09/22/2017. . FINDINGS: Lungs are hyperaerated but otherwise clear. The heart is moderately enlarged. There is no gross of acute airspace disease or congestion. There are no pleural effusions. Osseous structures are intact. CONCLUSION: Cardiomegaly and hyperinflated lungs. No evidence of acute cardiopulmonary process. Electronically signed by: Pato Araujo MD 03/09/2018 10:43 PM EDT
[2018-03-09 22:50] LABS: Baso % (Auto) 0.6 % (0.0-2.0); Eos # (Auto) 0.3 th/mm3 (0.0-0.4); Hemoglobin 12.5 gm/dL (11.6-15.3); Lymph # (Auto) 2.4 th/mm3 (1.0-4.8); Lymph % (Auto) 42.4 % (9.0-44.0); Mean Corpuscular Hemoglobin 26.9 pg (27.0-34.0); Mean Corpuscular Volume 81.7 fL (80.0-100.0); Mean Platelet Volume 7.2 fL (7.0-11.0); Mono # (Auto) 0.4 th/mm3 (0.0-0.9); Mono % (Auto) 7.7 % (0.0-8.0); Neut # (Auto) 2.5 th/mm3 (1.8-7.7); Neut % (Auto) 44.3 % (16.0-70.0); Platelet Count 274 th/mm3 (150-450); Red Blood Count 4.65 mil/mm3 (4.00-5.30); Red Cell Distribution Width 17.6 % (11.6-17.2); White Blood Count 5.7 th/mm3 (4.0-11.0)
[2018-03-09 23:03] LABS: Albumin 3.5 g/dL (3.4-5.0); Anion Gap 6 meq/L (5-15); Aspartate Aminotransferase 20 U/L (15-37); Blood Urea Nitrogen 19 mg/dL (7-18); Calcium 8.9 mg/dL (8.5-10.1); Carbon Dioxide 27.9 meq/L (21.0-32.0); Chloride 107 meq/L (98-107); Glomerular Filtration Rate 53 mL/min (>89); Glucose,Random 105 mg/dL (74-106); Potassium 3.3 meq/L (3.5-5.1); Sodium 141 meq/L (136-145)
[2018-03-09 23:04] LABS: Alanine Aminotransferase 20 U/L (10-53)
[2018-03-09 23:05] LABS: Activated Partial Thrombo Time 28.9 sec (24.3-30.1); Prothrombin Time 10.5 sec (9.8-11.6)
[2018-03-09 23:07] LABS: Alkaline Phosphatase 90 U/L (45-117); Creatine Kinase 248 U/L (26-192); Troponin I 0.04 ng/mL (0.02-0.05)
[2018-03-09 23:20] LABS: CKMB Percent 2.9 % (0.0-4.0); Creatine Kinase MB 7.3 ng/mL (0.5-3.6)
[2018-03-10 02:35] LABS: Troponin I 0.03 ng/mL (0.02-0.05)
[2018-03-10 02:48] LABS: Creatine Kinase MB 7.7 ng/mL (0.5-3.6)
[2018-03-10 05:37] LABS: Troponin I 0.03 ng/mL (0.02-0.05)
--- NOTE | 2018-03-10 07:44 | P.HPCA ---
History of Present Illness Primary Care Physician: No Primary Care Physician Chief Complaint: Chest pain History of Present Illness: This is a 62-year-old female with history of CAD as she was a STEMI alert June 04, 2016 showing a mid LAD total occlusion with thrombus requiring stenting. States she followed up with Dr. Lee a couple times since but has not seen him in about a year and a half. States she also stopped taking Brilinta about a year ago. States was too expensive. Patient presents complaining of a right-sided chest pressure that began while she is watching a football game last evening. Describes it as a pressure. Lasted 2 hours. She called [facility]. Was given sublingual nitroglycerin which brought her discomfort from 8 to 6 out of 10. Eventually resolve within about 2 hours. Recalls being a little diaphoretic. Denies shortness of breath or nausea. States that it does not feel similar to when having an [place] in the past. States that episode she had left-sided chest pain and arm pain is different type of discomfort. States this did not feel anything like it. Denies recent illnesses. Denies fevers or chills. There is family history of CAD. Patient continues to smoke cigarettes at about one half pack of cigarettes daily for about 40 years. - Diagnosis (1) Chest pain (2) Hypertension (3) CAD (coronary artery disease) (4) History of heart artery stent (5) Tobacco abuse (6) Diabetes Review of Systems General: Patient denies fevers, chills, and recent travel. HEENT: Patient denies headache, sore throat, difficulty swallowing. Cardiovascular: Has the chest discomfort as mentioned above. Denies sensation of heart beating rapidly or irregularly. No syncope. She was diaphoretic. Respiratory: Denies shortness of breath or inspirational chest discomfort. Denies coughing wheezing or hemoptysis. GI: Patient denies nausea, vomiting, diarrhea, abdominal pain, bloody stools. Musculoskeletal: Patient denies joint pain or edema. Denies calf pain or edema. Neurovascular: Patient denies numbness, tingling, weakness in extremities. Denies headache. Endocrine: Denies polyuria and polydipsia. Hematologic: Denies easy bruising. Skin: Denies rash or itching. PMFSH - History History Provided By: Patient - Medical History Medical History: Medical History (Last Updated 03/09/18 @ 22:23 by Stanley Benjamin) Diabetes HTN (hypertension) Heart attack - Surgical History Surgical History: Surgical History (Last Updated 03/09/18 @ 22:23 by Stanley Benjamin) H/O heart artery stent - Tobacco History Second Hand Smoke Exposure: Yes Tobacco Use In Past 30 Days: Yes Smoking Status: Current every day smoker Tobacco Type: Cigarettes - Alcohol History How Often Do You Have a Drink Containing Alcohol: Monthly or less - Substance Use History Substance History: Past History - Travel History Recent Travel in the [place] Within the Last 8 Weeks: No Recent Travel Out of the Country Within the Last 8 Weeks: No - Immunization History Tetanus Immunization: >5 Years Hx Influenza Vaccine This Season: No Medications and Allergies Active Medications: Active Medications Potassium Chloride (Kcl) 10 meq PO ONCE ONE Stop: 03/10/18 08:01 Sodium Chloride (Ns Flush) 2 ml IV.FLUSH BID LEIGH Sodium Chloride (Ns Flush) 2 ml IV.FLUSH PRN PRN PRN Reason: FLUSH AFTER USING IV ACCESS Allergies Allergy/AdvReac Type Severity Reaction Status Date / Time penicillin G Allergy Severe HIVES Verified 04/18/17 13:35 Home Medications Medication Instructions Recorded Confirmed Type amlodipine 10 mg PO DAILY 03/09/18 03/09/18 History aspirin [Aspir-81] 81 mg PO DAILY 03/09/18 03/09/18 History carvedilol 6.25 mg PO BID 03/09/18 03/09/18 History metformin 500 mg PO DAILY 03/09/18 03/09/18 History Exam Vital signs: Vital Signs 03/09/18 22:13 03/09/18 22:45 03/10/18 03:50 Temperature 98.6 F 98 F Pulse Rate 85 75 Respiratory Rate 18 16 Blood Pressure 152/98 H 124/72 Pulse Oximetry 100 99 96 Intake & Output 03/09/18 03/10/18 03/10/18 18:59 06:59 18:59 Weight 61.235 kg Other: # Voids 0 Narrative: GENERAL: This is a well-nourished, well-developed patient, in no apparent distress. Patient speaks in clear complete sentences. Patient is pleasant. HEENT: Head is atraumatic and normocephalic. Neck is supple without lymphadenopathy and trachea is midline. No JVD or carotid bruits. CARDIOVASCULAR: Regular rate and rhythm without murmurs, gallops, or rubs. RESPIRATORY: Clear to auscultation. Breath sounds equal bilaterally. No wheezes , rales, or rhonchi. Right-sided chest wall is tender reproducing the discomfort that brought her to the ED. No use of accessory muscles. GASTROINTESTINAL: Abdomen is nontender, nondistended. Abdomen soft. No obvious pulsatile mass or bruit. No CVA tenderness. Strong femoral pulses bilaterally. Normal bowel sounds in all quadrants. MUSCULOSKELETAL: Patient is moving upper and lower extremities freely. No calf tenderness or edema, no Homans sign. Strong pulses in upper and lower extremities. NEUROLOGICAL: Patient is alert and oriented. Cranial nerves 2-12 are grossly intact. No focal deficits and speech is clear. SKIN: No rash and turgor is normal. Results 03/09/18 22:40 03/09/18 22:40 Cardiac Enzymes 03/09/18 03/10/18 03/10/18 Range/Units 22:40 01:40 04:45 AST 20 (15-37) U/L CK-MB (CK-2) 7.3 H 7.7 H (0.5-3.6) ng/mL Troponin I 0.04 0.03 0.03 (0.02-0.05) ng/mL Coagulation 03/09/18 Range/Units 22:40 PT 10.5 (9.8-11.6) sec APTT 28.9 (24.3-30.1) sec CBC 03/09/18 Range/Units 22:40 WBC 5.7 (4.0-11.0) th/mm3 RBC 4.65 (4.00-5.30) mil/mm3 Hgb 12.5 (11.6-15.3) gm/dL Hct 38.0 (35.0-46.0) % Plt Count 274 (150-450) th/mm3 Neut # (Auto) 2.5 (1.8-7.7) th/mm3 Lymph # (Auto) 2.4 (1.0-4.8) th/mm3 Dickinson # (Auto) 0.4 (0.0-0.9) th/mm3 Eos # (Auto) 0.3 (0.0-0.4) th/mm3 Baso # (Auto) 0.0 (0.0-0.2) th/mm3 Comprehensive Metabolic Panel 03/09/18 Range/Units 22:40 Sodium 141 (136-145) meq/L Potassium 3.3 L (3.5-5.1) meq/L Chloride 107 (98-107) meq/L Carbon Dioxide 27.9 (21.0-32.0) meq/L BUN 19 H (7-18) mg/dL Creatinine 1.25 H (0.50-1.00) mg/dL Calcium 8.9 (8.5-10.1) mg/dL AST 20 (15-37) U/L ALT 20 (10-53) U/L Alkaline Phosphatase 90 (45-117) U/L Total Protein 7.0 (6.4-8.2) g/dL Albumin 3.5 (3.4-5.0) g/dL Intake and Output 03/09/18 03/10/18 03/10/18 22:59 06:59 14:59 Other: # Voids 0 Weight 61.235 kg EKG interpretations - EKG EKG shows: sinus rhythm (EKGs are sinus rhythm with anterolateral ST-T changes that when compared to prior EKGs are similar.) Caprini VTE Risk Assessment Caprini VTE Risk Assessment: Moderate/High Risk (score >= 2) Caprini Risk Assessment Model: Point Value = 1 Point Value = 2 Point Value = 3 Point Value = 5 Age 41-60 Minor surgery BMI > 25 kg/m2 Swollen legs Varicose veins or History of unexplained or recurrent spontaneous Oral contraceptives or hormone replacement Sepsis (< 1 month) Serious lung disease, including pneumonia (< 1 month) Abnormal pulmonary function Acute myocardial infarction Congestive heart failure (< 1 month) History of inflammatory bowel disease Medical patient at bed rest Age 61-74 Arthroscopic surgery Major open surgery (> 45 min) Laparoscopic surgery (> 45 min) Malignancy Confined to bed (> 72 hours) Immobilizing plaster cast Central venous access Age >= 75 History of VTE Family history of VTE Factor V Leiden Prothrombin [id number] Lupus anticoagulant Anticardiolipin antibodies Elevated serum homocysteine Heparin-induced thrombocytopenia Other congenital or acquired thrombophilia Stroke (< 1 month) Elective arthroplasty Hip, pelvis, or leg fracture Acute spinal cord injury (< 1 month) Prophylaxis Regimen: Total Risk Factor Score Risk Level Prophylaxis Regimen 0-1 Low Early ambulation 2 Moderate Order ONE of the following: *Sequential Compression Device (SCD) *Heparin 5000 units SQ BID 3-4 Higher Order ONE of the following medications: *Heparin 5000 units SQ TID *Enoxaparin/Lovenox 40 mg SQ daily (WT < 150 kg, CrCl > 30 mL/min) *Enoxaparin/Lovenox 30 mg SQ daily (WT < 150 kg, CrCl > 10-29 mL/min) *Enoxaparin/Lovenox 30 mg SQ BID (WT < 150 kg, CrCl > 30 mL/min) AND/OR *Sequential Compression Device (SCD) 5 or more Highest Order ONE of the following medications: *Heparin 5000 units SQ TID (Preferred with Epidurals) *Enoxaparin/Lovenox 40 mg SQ daily (WT < 150 kg, CrCl > 30 mL/min) *Enoxaparin/Lovenox 30 mg SQ daily (WT < 150 kg, CrCl > 10-29 mL/min) *Enoxaparin/Lovenox 30 mg SQ BID (WT < 150 kg, CrCl > 30 mL/min) AND *Sequential Compression Device (SCD) Assessment and Plan - Assessment (1) Chest pain Code(s): R07.9 - Chest pain, unspecified Status: Acute (2) Hypertension Code(s): I10 - Essential (primary) hypertension Status: Acute (3) CAD (coronary artery disease) Code(s): I25.10 - Atherosclerotic heart disease of council coronary artery without angina pectoris Status: Acute (4) History of heart artery stent Code(s): Z95.5 - Presence of coronary angioplasty implant and graft Status: Acute (5) Tobacco abuse Code(s): Z72.0 - Tobacco use Status: Acute (6) Diabetes Code(s): E11.9 - Type 2 diabetes mellitus without complications Status: Acute - Plan * Chest pain: Patient has had serial cardiac enzymes and EKGs for ruling out purposes. Her symptoms are atypical but she does have history of heart disease , continues to smoke cigarettes, is not on statin therapy. She will be seen by Dr. Mariano Palumbo of cardiology in the chest pain center and at that time further plan will be determined. A discharge patient will need follow-up with cardiology and PCP. * History of CAD with stent: Patient is ruled out with serial cardiac enzymes and EKGs. Patient needs a follow-up with cardiology and PCP. Discuss statin therapy with the patient and she states that she cannot recall taking any of his medications. She should be on this and thus contraindicated and she discussed this with PCP. Also history of diabetes she should be on an FABIAN inhibitor. * Diabetes: Continue medication. Have sliding scale insulin coverage. She should follow diabetic diet. Patient also should discuss with PCP be on FABIAN inhibitor which she is not currently on. * Hypertension: Continue medication. * Tobacco abuse: Patient has been counseled on importance of smoking cessation. Patient is stable at this time. She is agreeable to this plan. H&P: Quality - VTE Deep Vein Thrombosis/Pulmonary Embolism Present on Admission: No (1) Chest pain Qualifiers: Chest pain type: unspecified Qualified Code(s): R07.9 - Chest pain, unspecified
[2018-03-10] MEDS ORDERED: Potassium Chloride 10 MEQ ER Capsule PO ONE (08:00)
--- NOTE | 2018-03-10 08:46 | ECG ---
Date Performed: 03/10/2018 Time Performed: 05:09:33 PTAGE: 62 years EKG: Sinus rhythm MINIMAL VOLTAGE CRITERIA FOR LVH, CONSIDER NORMAL VARIANT NONSPECIFIC T-WAVE ABNORMALITY BORDERLINE ECG PREVIOUS TRACING : 03/09/2018 22.21 Since previous tracing, no significant change noted DOCTOR: Mariano Palumbo Interpretating Date/Time 03/10/2018 08:45:51
--- NOTE | 2018-03-10 08:47 | ECG ---
Date Performed: 03/09/2018 Time Performed: 22:21:18 PTAGE: 62 years EKG: Sinus rhythm WITH SINUS ARRHYTHMIA POSSIBLE LEFT ATRIAL ENLARGEMENT POSSIBLE LEFT VENTRICULAR HYPERTROPHY MODERAT E T-WAVE ABNORMALITY, CONSIDER LATERAL ISCHEMIA ABNORMAL ECG PREVIOUS TRACING : 09/22/2017 07.51 Since previous tracing, no significant change noted DOCTOR: Mariano Palumbo Interpretating Date/Time 03/10/2018 08:46:55
--- NOTE | 2018-03-10 08:47 | ECG ---
Date Performed: 03/10/2018 Time Performed: 02:10:07 PTAGE: 62 years EKG: Sinus rhythm POSSIBLE LEFT VENTRICULAR HYPERTROPHY ABNORMAL ECG INTERPRETATION BASED ON A DEFAULT AGE OF 40 YEARS PREVIOUS TRACING : 03/09/2018 22.21 Since previous tracing, no significant change noted DOCTOR: Mariano Palumbo Interpretating Date/Time 03/10/2018 08:46:38
[2018-03-10] MEDS ORDERED: Regadenoson Inj 0.4 MG/5 ML Syringe IV.PUSH ONE (09:35)
[2018-03-10 10:38] VITALS: RESP 18
--- NOTE | 2018-03-10 10:55 | NM ---
EXAM DATE: 03/10/2018 10:38 AM EDT AGE/SEX: 62 years / Female INDICATIONS:. . Angina. CLINICAL DATA: This is the patient's subsequent encounter. Patient reports that signs and symptoms h ave been present for 1 day and indicates a pain score of 7/10. MEDICAL/SURGICAL HISTORY: Diabetes. Myocardial infarction. Hypertension. Coronary artery dis ease. Coronary artery stent. COMPARISON: No prior exams available for comparison. DOSE: 8.6 mCi Tc 99m Myoview at rest 25.6 mCi [id number] at stress 0.4 mg Lexiscan STRESS SYMPTOMS: Shortness of breath, nausea, and headache. EJECTION FRACTION: 17 % TECHNIQUE: The patient underwent pharmacologic stress with infusion of prescribed dose. Continuous ECG tracing was monitored during stress. Gated SPECT imaging was performed after stress and conventi onal SPECT imaging was performed at rest. The examination was performed on a SPECT/CT scanner, both attenuation and non-corrected datasets were reviewed. FINDINGS: Distribution: The maximum perfused segment at stress is in the septal wall. Perfusion Study: Fixed perfusion defects at the apex extending into the anterior, lateral and inferio r leger. Gated Study: Severe global hypokinesis. The ejection fraction is calculated at 17%. RISK CATEGORY: High (>3% Annual Morality Rate) CONCLUSION: 1. Fixed perfusion defects predominantly at the cardiac apex but extending into the anterior, latera l and inferior wall. This is characteristic of prior myocardial infarction. No definite reversibility to suggest ischemia. 2. Severe global hypokinesis with ejection fraction 17%. Electronically signed by: Zan Pritchett MD 03/10/2018 10:54 AM EDT
[2018-03-10] MEDS ORDERED: Acetaminophen 500 MG Tablet PO PRN (11:48)
[2018-03-10 12:07] VITALS: PULSE 74
[2018-03-10 13:18] VITALS: BP 134/79; TEMP 98; O2SAT 98
--- NOTE | 2018-03-10 14:45 | TR ---
Date Performed: 03/10/2018 Time Performed: 09:27:13 DOCTOR: Mariano Palumbo DRUG LIST: CLINICAL HISTORY: REASON FOR TEST: REASON FOR ENDING: OBSERVATION: CONCLUSION: COMMENTS: Lexiscan stress test was performed under standard four minute protocol. Radionuclide was injected one minute prior to ending the test. No electrocardiographic abormalities were present t o suggest ischemia. Nuclear imaging and interpretation are pending.
== END 2018-03-10 14:36 | disposition home or self-care (01) ==
LOC: NEPGCP 22:03 → NEPC 22:03 → NEDA 22:03 → NEPGCP 03-10 02:51
PROVIDERS: ADMIT Internal Medicine Cardiovascular Disease; ATTEND Internal Medicine Cardiovascular Disease